=== PATIENT | female | born 1945 | race Caucasian/White ===

== ENCOUNTER 2016-11-06 06:44 | Inpatient (IN) | payer OTHER ==
[2016-11-06] VITALS (17 sets, daily range): BP systolic 91–193; BP diastolic 45–93; PULSE 84–107; RESP 16–33; O2SAT 88–95
[~2016-11-06] VITALS: Ht 167.6 cm; Wt 83.1 kg
[2016-11-06] MEDS ORDERED: Ondansetron 2 mg/mL 2 mL Inj ONE (07:06)
[2016-11-06 07:15] LABS: BASOPHILS % (AUTO) 0.8 % (0-3); EOSINOPHILS % (AUTO) 1.3 % (0-5); Mean Corpuscular Hemoglobin 28.4 pg (27.0-35.0); Mean Corpuscular Volume 88.2 fL (81-100); NEUTROPHILS % (AUTO) 47.3 % (40-74); Platelet Count 153 bil/L (150-400)
--- NOTE | 2016-11-06 07:15 | ED.REPORT ---
HPI-Syncope Date of Service Nov 06, 2016 ED Provider: The patient is a 71 year old female with history of hypertension, who was brought to the emergency department by EMS after she had a syncopal episode this morning. The patient was coughing in bed this morning and got up to use the restroom. The patient remembers going to the restroom, sitting on the toilet to urinate, and then she woke up on the ground with her family standing around her. Her states it took her a minute or two to "get her wits about her." She denies any injuries from the fall. She remained on the floor until EMS arrived. She also reports dizziness, lightheadedness, and nausea. Last night before bed she experienced some heartburn and took medication. She otherwise felt normal yesterday. She denies chest pain or shortness of breath. She has not had similar symptoms in the past. Nursing Notes Stated Complaint: SYNCOPE Chief Complaint: General Complaint Nursing Notes Reviewed: Yes Allergies: Coded Allergies: No Known Allergies (Unverified , 11/06/16) Scheduled Amlodipine (Amlodipine) 5 Mg Tablet 5 MG PO DAILY Miscellaneous Medications Perindopril Erbumine (Perindopril Erbumine) 4 Mg Tablet 4 MG PO General Time Seen by Provider: 07:15 Chief Complaint Lost consciousness Syncope Description: Single episode Hx Obtained From: Patient, Spouse, EMS Arrived By: Ambulance Onset Occurred: 1 - 4 hours ago Symptom Duration: Since onset Progression Since Onset: Constant Severity: Current: No pain currently Severity: Maximum: No pain Recent Healthcare: No recent doctor visit, No recent hospitalization Similar Sx Previous: No Risk-Syncope Well's Criteria for PE HR > 100 (1.5) Well's PE Score: 0-2 pts (low risk 3.6%) Past Medical History Past Medical History Hypertension GERD Past Surgical History Denies Family History Noncontributory Smoking History Never Smoker Social History Alcohol Use: Denies alcohol use Other Social History: Good social support, , From out of town Ambulatory Status Independent Review of Systems Respiratory: Denies: Shortness of breath Cardiovascular: Denies: Chest pain Musculoskeletal: Denies: Back pain, Extremity pain, Joint pain, Neck pain Neurologic: Reports: Change LOC, Dizziness, Lightheaded, Syncope, Denies: Headache Complete sys rev & neg: except as marked. Physical Exam Initial Vital Signs Vital Signs (First) Date Time Temp Pulse Resp B/P Pulse Ox O2 Delivery O2 Flow Rate FiO2 11/06/16 06:52 37.0 86 33 193/93 93 Room Air 11/06/16 08:06 3 Initial VS: Reviewed Head / Eyes: Atraumatic, Normocephalic, PERRL ENT: Mucous membranes moist, Conjunctiva normal, No scleral icterus Neck: Supple, Non-tender, Full range of motion Abdomen / GI: Soft, Non-tender, No guarding, No rebound, No distention Lymphatic: No lymphadenopathy Upper Extremities: Vascular intact, Neuro intact, No swelling, No tenderness Skin: Warm, Dry, No cyanosis Psychiatric: Mood/affect normal, Behavior normal, Normal thought content General/Constitutional: Awake, Alert, No acute distress, Cooperative Respiratory / Chest: Breath sounds = bilat, No respiratory distress, No rhonchi , No wheezing Rales / Rhonchi: Positive: Rales bilateral bases Cardiovascular: Heart rate NL, Regular rhythm, Heart sounds NL, No gallop, No murmurs, No rubs, Cap refill not delayed, Peripheral circulation NL Lower Extremity / Pelvis / MS: Neurologic intact, Vascular intact, No edema Neurologic: Oriented X3, Speech NL, No motor deficits, No sensory deficits, Cerebellar NL Interpretation & Diagnostics Interpretation & Diagnostics: Urine dip: positive for leukocytes Lab Results Interpretation Result Diagram: 11/06/16 0710 11/06/16 0710 Test 11/06/16 07:00 11/06/16 07:10 11/06/16 07:30 11/06/16 10:27 D-Dimer 1.7mg/L (<0.50) Pro-B-Type Natriuretic Peptide 52.71pg/mL (0-301) Procalcitonin 0.03ng/mL (0.00-0.08) White Blood Count 6.1th/mm3 (3.8-10.1) Red Blood Count 5.00mil/mm3 (3.90-5.20) Hemoglobin 14.2g/dL (12.0-15.6) Hematocrit 44.1% (35.0-46.0) Mean Corpuscular Volume 88.2fL (81-100) Mean Corpuscular Hemoglobin 28.4pg (27.0-35.0) Mean Corpuscular Hemoglobin Concent 32.2% (32.0-37.0) Red Cell Distribution Width 13.7% (12.3-15.4) Platelet Count 153bil/L (150-400) Neutrophils (%) (Auto) 47.3% (40-74) Lymphocytes (%) (Auto) 47.9% (14-46) Monocytes (%) (Auto) 2.0% (4-12) Eosinophils (%) (Auto) 1.3% (0-5) Basophils (%) (Auto) 0.8% (0-3) Sodium Level 142mEq/L (134-144) Potassium Level 3.9mEq/L (3.5-5.2) Chloride Level 106mEq/L (97-108) Carbon Dioxide Level 20mmol/L (18-29) Blood Urea Nitrogen 12mg/dL (8-27) Creatinine 0.76mg/dL (0.57-1.00) Estimat Glomerular Filtration Rate 107mL/min (>59) Glucose Level 136mg/dL (60-99) Calcium Level 8.2mg/dL (8.5-10.1) Magnesium Level 2.0mg/dL (1.6-2.6) Total Bilirubin 0.3mg/dL (0.0-1.2) Aspartate Amino Transf (AST/SGOT) 15U/L (0-50) Alanine Aminotransferase (ALT/SGPT) 9U/L (0-32) Alkaline Phosphatase 127U/L (25-165) Troponin T < 0.010ug/L (0.0-0.011) Total Protein 6.5g/dL (6.4-8.4) Albumin 3.7g/dL (3.4-5.0) Urine Color Yellow (YELLOW) Urine Appearance Hazy (CLEAR,HAZY) Urine pH 7.0 (5.0-8.0) Urine Specific [place] 1.015 (1.003-1.035) Urine Protein Negativemg/dL (NEG,TRACE) Urine Glucose (UA) Negativemg/dL (NEGATIVE) Urine Ketones Negativemg/dL (NEGATIVE) Urine Occult Blood Negative (NEGATIVE) Urine Nitrite Negative (NEGATIVE) Urine Bilirubin Negative (NEGATIVE) Urine Urobilinogen Normalmg/dL (NORMAL) Urine Leukocyte Esterase Trace (NEGATIVE) Urine RBC 0-2/hpf (0-2) Urine WBC 0-5/hpf (0-5) Urine Epithelial Cells Occasional/hpf (NONE-MOD) Urine Crystals None seen (NONE SEEN) Urine Bacteria Few/hpf (NONE-FEW) Urine Hyaline Casts None/lpf (NONE) Urine Granular Casts None seen (NONE SEEN) Urine Waxy Casts None seen (NONE SEEN) Urine Red Blood Cell Casts None seen (NONE SEEN) Urine White Blood Cell Casts None seen (NONE SEEN) Urine Mucus None seen (None Seen) Urine Trichomonas None seen (NONE SEEN) Urine Yeast None (NONE SEEN) Urinalysis Comment None Urine Culture Reflexed Indicated Hold Urine Received (Received) Lactic Acid Level 3.0mmol/L (0.4-2.0) ECG Interpretation ECG Interpretation: Normal sinus rhythm with a rate of 84 No acute ischemic changes Time: 06:53 Interpreted by: ED physician X-Ray Chest Interpretation Chest Xray Interpretation: IMPRESSION: Bilateral interstitial and airspace infiltrates consistent with pulmonary edema or diffuse bilateral pneumonia. Dictated by: Julian Mendez M.D. on 11/06/2016 at 8:50 Interpretation / Wet Read by: Interpret - Radiologist CT Chest Interpretation IMPRESSION: 1. No pulmonary embolus. 2. Scattered bilateral lung groundglass opacities, interlobular septal thickening with apical predominance consistent with pulmonary edema. 3. Trace bilateral pleural effusions. 4. Moderate-sized hiatal hernia. 5. Cholelithiasis. Dictated by: Sandra Horta MD, PhD on 11/06/2016 at 9:03 Study type: CT pulm angiogram Interpretation / Wet Read by: Interpret - Radiologist Re-Eval/Medical Decision Source of Hx: Old records, EMS, Family Re-Evaluation/Progress #1: Time of Eval: 07:26 Re-Evaluation/Progress Note: She still complains of nausea. Re-Evaluation/Progress #2: Time of Eval: 08:02 Re-Evaluation/Progress Note: Rechecked the patient. Went through PE risk factors. Re-Evaluation/Progress #3: Time of Eval: 08:26 Re-Evaluation/Progress Note: Rechecked the patient. Discussed elevated d-dimer result and plan for CTA. She understands and agrees. All questions were addressed. Re-Evaluation/Progress #4: Time of Eval: 09:22 Re-Evaluation/Progress Note: Rechecked the patient. Discussed results and plan for admission. She understands and agrees with plan. All questions were addressed. Consultation : Referral / Consult Name: René Lundberg MD Consulted With: Hospitalist Requested Call at: 09:24 Call Returned at: 10:00 Pinion Staker: Will see patient, Agrees with eval, Agrees with plan, Accepts admit Counseled Regarding: Diagnosis, Lab results, Need for admission Discharge & Departure Impression: Primary Impression: Syncope Syncope type: unspecified Qualified Code: R55 - Syncope and collapse Additional Impressions: Congestive heart failure Congestive heart failure type: unspecified congestive heart failure type Congestive heart failure chronicity: unspecified congestive heart failure chronicity Qualified Code: I50.9 - Heart failure, unspecified Hypoxia Disposition: ADMITTED TO HOSPITAL Discharge Condition All VS Reviewed: Yes Condition: Stable Scribe Attestation Portions of this note were transcribed by Anel Li. I, Dr. Casillas personally performed the history, physical exam and medical decision-making; I reviewed and confirmed the accuracy of the information in the transcribed note. Signed by: Fela Osei, 11/06/2016 at 1005. Osvaldo Casillas MD Nov 06, 2016 07:15 Anel Li Nov 06, 2016 07:22
[2016-11-06] MEDS ORDERED: 0.9% Sodium Chloride 1,000 ML IV SCH (07:30)
[2016-11-06] MEDS ORDERED: MetoCLOpramide 5 mg/mL 2 mL Inj IVPUSH ONE (07:30)
[2016-11-06 07:54] LABS: TROPONIN T < 0.010 ug/L (0.0-0.011)
[2016-11-06 08:27] LABS: APPEARANCE,URINE HAZY (CLEAR,HAZY); COLOR,URINE YELLOW (YELLOW); OCCULT BLOOD,URINE NEGATIVE (NEGATIVE); UROBILINOGEN,URINE NORMAL (NORMAL)
--- NOTE | 2016-11-06 08:52 | DRSVH ---
PROCEDURE: X-RAY CHEST ONE VIEW, PORTABLE ([id number]) INDICATIONS: SHORTNESS OF BREATH TECHNIQUE: One view of the chest was acquired. COMPARISON: None. FINDINGS: Surgical changes and devices: None. Lungs and pleura: Bilateral interstitial and airspace infiltrates. No pleural effusions or pneumotho rax. Lungs are clear. Mediastinum: Mediastinal contours appear normal. Heart size is normal. Bones and chest wall: No suspicious bony lesions. Overlying soft tissues appear unremarkable. IMPRESSION: Bilateral interstitial and airspace infiltrates consistent with pulmonary edema or diffus e bilateral pneumonia. Dictated by: Julian Mendez M.D. on 11/06/2016 at 8:50 Approved by: Julian Mendez M.D. on 11/06/2016 at 8:51
--- NOTE | 2016-11-06 09:13 | DRSVH ---
PROCEDURE: CT ANGIO CHEST PULMONARY EMBOLISM ([id number]) INDICATIONS: syncope, abnl chest X-ray TECHNIQUE: After the administration of intravenous contrast, 2 mm thick sections acquired from the pulmonary api jose luis to the posterior costophrenic angles. 3-dimensional maximum intensity projection (MIP) coronal a nd sagittal reformats were then acquired through the thorax. For radiation dose reduction, the follo wing was used: automated exposure control, adjustment of mA and/or kV according to patient size. COMPARISON: [facility], CR, XR CHEST 1VW (PORTABLE), 11/06/2016, 7:06. FINDINGS: Image quality: Excellent. Pulmonary arteries: Pulmonary arteries are normal in size, and demonstrate no intraluminal filling d efects to suggest central pulmonary embolism. Lungs and pleura: Multiple bilateral lung nodules are noted ranging in size from 3-7 mm. Recommend re peat CT scan of the chest in 3 months. Scattered ground glass opacities and septal thickening with ap ical predominance noted in the lungs bilaterally consistent with pulmonary edema. Trace bilateral ple ural effusions. No pneumothorax. Central and peripheral airways are patent. Mediastinum: Heart size is normal, without pericardial effusion. Atherosclerotic calcifications are noted in the aorta. No mediastinal or hilar adenopathy. Thoracic aorta is normal in caliber and enh ancement. Esophagus is normal in caliber, without hiatal hernia. Bones and chest wall: No suspicious bony lesions. Ribs and thoracic spine appear intact throughout. Thyroid gland is within normal limits where visualized. No axillary or supraclavicular adenopathy. Degenerative disc disease and facet arthropathy are noted. Abdomen: Moderate-sized hiatal hernia is noted. Gallstone is partially visualized in the gallbladder . Visualized upper abdominal solid organs appear normal in the early arterial phase of enhancement. IMPRESSION: 1. No pulmonary embolus. 2. Scattered bilateral lung groundglass opacities, interlobular septal thickening with apical predomi nance consistent with pulmonary edema. 3. Trace bilateral pleural effusions. 4. Moderate-sized hiatal hernia. 5. Cholelithiasis. Dictated by: Sandra Horta MD, PhD on 11/06/2016 at 9:03 Approved by: Sandra Horta MD, PhD on 11/06/2016 at 9:11
[2016-11-06] MEDS ORDERED: AMLO5TAB2 PO (10:15)
[2016-11-06] MEDS ORDERED: PERI2TAB2 PO (10:17)
[2016-11-06] MEDS ORDERED: PERI4TAB2 PO (10:39)
[2016-11-06] MEDS ORDERED: Ondansetron 2 mg/mL 2 mL Inj IVPUSH PRN ×2 (11:00→11:30)
[2016-11-06] MEDS ORDERED: Polyethylene Glycol (PEG) 17 Gm Powder PO PRN (11:30)
[2016-11-06] MEDS ORDERED: Alum-Mag Hydrox-Simeth 30 mL Suspension PO PRN (11:30)
--- NOTE | 2016-11-06 16:21 | DRSVH ---
[facility] [address] [place] [address] Echocardiogram Report Name: ANAMIKA JONES ate: 11/06/2016 Height: 66 in Hospital Exam Location: [facility] Weight: 176 lb Gender: Female BSA: 1.9 m2 : 1945 Age: 71 yrs BP: 134/72 mmHg Reason For Study: Syncope Ordering Physician: HOSPITALIST [facility] Performed By: Ellie Iraheta Referring Physician: BEBO SMITH Interpretation Summary 1. Normal left ventricular size, wall thickness and systolic function with an estimated EF of 65 to 70% 2. Normal right ventricular size and systolic function. 3. No evidence for valvular pathology There is no old study for comparison Procedure: A two-dimensional transthoracic echocardiogram with color flow and Doppler was performed. The study quality was technically adequate. There is no prior echocardiogram noted for this patient. The patient was in sinus tachycardia with heart rates between 92-103 bpm during the exam. Left Ventricle: The left ventricular cavity is small. There is normal left ventricular wall thickness. The ejection fraction is estimated to be 65-70%. The E/A ratio is reversed, suggesting impaired early relaxation of the left ventricle or a reduced preload state. Right Ventricle: The right ventricle is normal in size and function. Atria: Both atria are normal in size. There is no Doppler evidence for an interatrial shunt. Mitral Valve: The mitral valve is normal in structure and function. There is trace mitral regurgitation. Aortic Valve: The aortic valve is trileaflet. The aortic valve opens well. No aortic regurgitation is present. Tricuspid Valve: The tricuspid valve is normal in structure and function. There is a trace or physiologic amount of tricuspid regurgitation. Right ventricular systolic pressure is estimated to be 24 mmHg plus the clinically estimated CVP which cannot be estimated on this exam. Pulmonic Valve: The pulmonic valve is not well seen, but is grossly normal. There is a trace or physiologic amount of pulmonic regurgitation. Great Vessels: The aortic root is normal size. The ascending aorta is normal in size. The aortic arch is normal in size. The inferior vena cava was not visualized. Pericardium/ Pleura Trace pericardial fluid. MMode/2D Measurements & Calculations LVIDd: 3.7 cm LA dimension: 3.5 cm RA long axis Ao root diam LVIDs: 2.2 cm FS: 41.3 % LA A2 area: 12.7 cm RA area asc Aorta Diam IVSd: 0.82 cm LA A4 area: 12.3 cm LVPWd: 0.83 cm LA length (vol) : 10.7 cm Ao Arch Diam (Prox RA vol Trans): 3.2 cm LA vol: 28.2 ml : 22.3 ml LA vol index RA : 11.8 mm/ : 14.9 ml/m2 RVDd major : 5.5 cm LV mojica. diameter/BSA LV sys. diameter/BSA RVD1 (basal) RVD2 (mid): 2.8 cm (cm/m^2): 2.0 (cm/m^2): 1.2 Doppler Measurements & Calculations Ao V2 max MV E max elijah MV E/A: 0.63 TR max elijah : 140.8 cm/sec : 58.6 cm/sec Med Peak E' Elijah : 242.6 cm/sec Ao max PG MV A max elijah TR max PG : 7.9 mmHg : 92.3 cm/sec E/E' med: 9.3 : 23.5 mmHg Ao mean PG MV P1/2t: 61.6 msec Lat Peak E' Elijah PA V2 max : 5.0 mmHg : 113.5 cm/sec E/E' lat: 6.5 PA mean PG E/e' average: 7.9 MV A dur: 0.17 sec PA Accel Time : 0.12 sec MV dec time MV P1/2t max elijah Ao V2 mean PA V2 mean : 0.21 sec : 106.8 cm/sec : 76.3 cm/sec MVA(P1/2t): 3.6 cm2 [facility] VTI: 26.7 cm Reading Physician:04:20 PM
--- NOTE | 2016-11-06 17:00 | PCM.HPMED ---
Subjective Date of Service Nov 06, 2016 Primary Provider: Admitting Physician: Primary Care Physician: Carlos Manuel Attending Physician: Chief Complaint: Syncope History of Present Illness: Patient is a 71 year old female with a history of hypertension and hyperlipidemia. She presented to the ED via EMS on 11/06/16 after a syncopal episode. She reports that while still lying in bed this morning, she began coughing then stood up to use the restroom. She made it to the restroom and when she stood after urinating, she blacked out and woke on the floor with family looking at her. Per patient's daughter, she was out for 30-60 seconds and was incontinent of urine on the floor. She denies injury from the fall but has a bruised left hip. Upon arrival of EMS the patient was moved to a chair. Then when trying to stand she experienced abrupt dizziness, nausea and sensation of another syncopal episode. She had nausea but no vomiting and when laying down has no continued nausea. She denies chest pain, headache, vision changes, shortness of breath, diarrhea, dysuria, hematuria, or unusual bleeding. She did recently go camping and had decreased fluid intake during that time to try and control urinary frequency, so reports possible dehydration. She has had no recent illnesses and no sick contacts. She denies recent trauma. Patient reports a similar syncopal episode about 9 months ago where she got up from bed to use the restroom and fell to the floor. Her PCP at that time did a cardiac work up including labs, carotid ultrasound, and ECG, which the patient reports were all negative. She is unsure if echo was obtained, but does not recall an ultrasound of her chest. In the ED the patient was afebrile with a heart rate of 97, respiratory rate 21 , blood pressure 123/71 and O2 saturation of 94% on 3l via nasal cannula. Labs were unremarkable. IV fluids given x 2L. Per nursing staff, patient has hypotension just sitting up in bed. If she is up to the bedside commode she becomes hypotensive, tachycardic, dizzy and nauseated. At rest, she becomes more hypertensive and her nausea resolves completely. Review of Systems: A comprehensive review of systems was conducted with the patient and found to be negative except as above in the history of present illness. Allergies Coded Allergies: No Known Allergies (Unverified , 11/06/16) Home Medications Per patient: Amlodipine 5 mg daily Perindopril 4 mg daily OTC medication for heartburn used as needed PMH Hypertension Hyperlipidemia (diet controlled) Acid reflux Osteoarthritis Uterine fibroids Surgical History Tubal ligation about 40 years ago Colonoscopy x1 Family History Mom - renal cell carcinoma that metastasized to lung and brain ( age 35) Paternal grandfather - [place] Numerous male relative with CAD and hyperlipidemia Social History Hx Alcohol Use: No Hx Substance Use: No Hx Tobacco Use: No Smoking Status: Never Smoker Living Arrangement: with Family Exam Vital Signs Vital Sign - Last Date Time Temp Pulse Resp B/P Pulse Ox O2 Delivery O2 Flow Rate FiO2 11/06/16 10:53 94 21 116/64 94 Nasal Cannula 3 11/06/16 10:10 37.1 Exam Alert and oriented x3, no acute distress; laying in ED bed Head atraumatic, normocephalic PERRLA, EOMI, sclera anicteric Mucus membranes moist, no oral thrush observed No cervical lymphadenopathy, neck supple, nontender No JVD noted Cardiac tones regular rate and rhythm with no murmur appreciated Lungs clear to auscultation bilaterally with adequate respiratory effort in the anterior lorenzo No abdominal tenderness, non-distended, normoactive bowel tones, soft Sagastume absent Radial pulses normal and equivalent bilaterally, dorsalis pedis pulses normal and equivalent bilaterally No cyanosis, clubbing or edema No ulcerations/open wounds; left flank ecchymosis Cranial nerves appear to be fully intact, normal speech, patient can move upper and lower limbs grossly; did not further assess due to reports of hypotension with positional changes Appropriate mood and affect Lab and Diagnostics Result Diagram: 11/06/16 0710 11/06/16 0710 X-Rays, CTs and MRIs PROCEDURE: CT ANGIO CHEST PULMONARY EMBOLISM IMPRESSION: 1. No pulmonary embolus. 2. Scattered bilateral lung groundglass opacities, interlobular septal thickening with apical predominance consistent with pulmonary edema. 3. Trace bilateral pleural effusions. 4. Moderate-sized hiatal hernia. 5. Cholelithiasis. Dictated by: Sandra Horta MD, PhD on 11/06/2016 at 9:03 PROCEDURE: X-RAY CHEST ONE VIEW, PORTABLE IMPRESSION: Bilateral interstitial and airspace infiltrates consistent with pulmonary edema or diffuse bilateral pneumonia. Dictated by: Julian Mendez M.D. on 11/06/2016 at 8:50 Assessment & Plan Patient is a 71 year old female with a history of hypertension and hyperlipidemia. She presented to the ED via EMS on 11/06/16 after a syncopal episode. Patient received IV fluids x 2L. Orthostatics positive. Admitted for further evaluation and management. 1. Syncopal episode, acute, present on admission. - Based on history it would seem a cardiac etiology would be most likely. Also consider fluid depletion or infectious causes. - May be a combination of self-induced dehydration and continuation of antihypertensives during a camping trip over the past weekend. - EKG reassuring at this time. Low threshold to repeat. - Continue telemetry to monitor for any evidence of arrhythmia and AV block. - Echocardiogram ordered and pending. - Will continue to monitor CBC and BMP for signs of reversible causes. - Previous syncopal episode yielded reportedly negative workup with PCP. Will attempt to obtain records from Dr. Suggs in [facility] ([phone]). - Check orthostatics tomorrow AM to re-evaluate syncope. 2. Elevated lactic acid, acute, present on admission. - Could be secondary to hypoperfusion from hypotension. - Patient has received IV fluids and is able to eat and drink. Recommend she consume adequate water. - Continue to trend. 3. Hypertension, chronic, presume stable. - Home meds include amlodipine 5 mg and perindopril 4 mg daily. - Will hold home meds at this time while we further evaluate her syncope. 4. Hyperlipidemia, chronic, presume stable. - Patient reports she has been using diet control for this. - Recommend heart healthy diet during admission. Patient admitted under inpatient status with expected length of stay greater than 2 midnights for severity of present symptoms, complexities of treatment plan and risk for adverse events. PCP Dr. Suggs Pain Evaluation: Adequate Pain Control GI Prophylaxis: Not indicated VTE Prophylaxis: Sub-Q Enoxaparin, SCDs Resuscitation Status: CPR: Attempt Resuscitation Attending Statement The patient was seen and examined together with Dr. Santana on 11/06/2016 and I agree with the history, exam and plan as outlined in the note above. . Magda Santana DO Nov 06, 2016 11:37 René Lundberg MD Nov 08, 2016 07:23
--- NOTE | 2016-11-06 19:25 | NUR ---
Admit Pt admitted from the ED around 1630 with and daughter at the bedside. A&O X3. No c/o pain, dizziness, or nausea. Tele SR 80's. No c/o chest pain. Lungs diminished throughout. On RA. Bruise noted on lower left back. Dry scab areas scattered on back. Bowel tones active. Voiding well. Some dribbling if she doesn't get to the toilet in time. Pt ambulated to the bathroom and back, slightly wobbly. SBA. Appetite good. R AC and R wrist IVs flushing well.
[2016-11-07 02:50] LABS: BASOPHILS % (AUTO) 0.1 % (0-3); EOSINOPHILS % (AUTO) 0.2 % (0-5); MONOCYTES % (AUTO) 6.6 % (4-12); Mean Corpuscular Hemoglobin 28.4 pg (27.0-35.0); Mean Corpuscular Volume 88.1 fL (81-100); NEUTROPHILS % (AUTO) 74.3 % (40-74); Platelet Count 125 bil/L (150-400)
[2016-11-07 03:37] VITALS: PULSE 85
[2016-11-07 03:40] VITALS: BP_SYST 123; BP_SYST 73; BP_DIAS 73; PULSE 87; RESP 16; O2SAT 92
[2016-11-07 03:40] LABS: Magnesium 1.8 mg/dL (1.6-2.6); Phosphorus 3.1 mg/dL (2.5-4.9)
--- NOTE | 2016-11-07 05:13 | NUR ---
Activity/Telemetry Pt able to ambulate in room I without c/o dizziness. Pt states, "I walked all around the room with my daughter." Denies shortness of breath and discomfort. Telemetry: SR HR 86 with PVC per hydroelectric systems technician. VSS. care ongoing.
[2016-11-07 07:31] VITALS: BP 137/83; PULSE 86; RESP 16; O2SAT 94
[2016-11-07 07:42] VITALS: BP 120/80; PULSE 88
[2016-11-07 07:46] VITALS: BP 131/80; PULSE 93
[2016-11-07 08:00] VITALS: PULSE 83
--- NOTE | 2016-11-07 10:40 | PCM.DIMED ---
Ambrose Adam DO 11/07/16 1040: Discharge Instructions Date of Service Nov 07, 2016 Dates of Hospitalization Nov 06, 2016 at 15:59 Discharge Diagnosis Discharge Diagnosis 1. Syncopal episode 2. Elevated lactic acid 3. Hypertension 4. Hyperlipidemia Medication Instructions You are not receiving any medications. Diet No restrictions Activity No restrictions Call your provider Fever or Chills, Shortness of breath, Bleeding, Chest pain, Vomitting, Excessive diarrhea, Weakness (unilateral) Patient Instructions Please take your medications as prescribed from before your hospitalization. Stay well hydrated. Recommend you drink when you are thirsty, but if you are concerned for having to get up to urinate in the middle of the night, stop drinking 2-3 hours before going to bed. If you experience any lightheadedness, dizziness, feel your heart beating fast, have any chest pains, or changes in vision (blurry or double vision), sit down immediately and call for help. If this happens again, please report to an ER or call 911. Follow-up plan Follow up with your primary care physician when you are done with your vacation. We are not changing any medications and you appear stable today. If anything changes, please seek medical attention immediately. Additional Information Pt is from [place] and on vacation. Symptoms resolved. Pt to follow up with personal doctor in [place] following vacation. René Lundberg MD 11/08/16 0724: Discharge Instructions Attending's Statement The patient was seen and examined together with Dr. Adam on 11/07/2016 and I agree with the history, exam and plan as outlined in the note above. . Ambrose Adam DO Nov 07, 2016 10:40 René Lundberg MD Nov 08, 2016 07:24
--- NOTE | 2016-11-07 10:57 | NUR ---
Social Work: Initial Assessment D: Per EMR review, pt is a 71 year old female admitted for CHF< Hypoxia, Syncope. Pt primary insurance is travel insurance through [employer] [facility] on chart. PCP is not listed. NOK is Bess London, dtr, . Advanced directives completed at home- requested copy from pt for pt's EMR. Readmit score is low, 0/8. FACILITIES SPECIALIST met with pt and spouse at bedside. Sw role explained and contact information provided. See initial assessment. Pt and spouse are from [place] and are in town visiting their daughter. Pt is I with ADLs at baseline and uses no DME. Pt has never had HH or care home. Pt continues to drive and has no concerns about d/c. A: pt who is I at baseline. P: Anticipate pt to discharge home via POV once medically stable; FACILITIES SPECIALIST to continue to follow. TERRI Dewey Addendum: 11/07/16 at 1104 by BALTA MA Amended: Links added.
--- NOTE | 2016-11-07 11:12 | PCM.DC.MED ---
Discharge Summary Date of Service Nov 07, 2016 Dates of Hospitalization Date of Hospital Admission Nov 06, 2016 at 15:59 Date of Discharge: Nov 07, 2016 Providers: Admitting Physician: René Lundberg MD Primary Care Physician: Nopcp Attending Physician: René Lundberg MD Diagnosis at Time of Discharge Diagnosis at Time of Discharge 1. Syncopal episode 2. Elevated lactic acid 3. Hypertension 4. Hyperlipidemia Procedures XRay, CTs & MRIs PROCEDURE: CT ANGIO CHEST PULMONARY EMBOLISM IMPRESSION: 1. No pulmonary embolus. 2. Scattered bilateral lung groundglass opacities, interlobular septal thickening with apical predominance consistent with pulmonary edema. 3. Trace bilateral pleural effusions. 4. Moderate-sized hiatal hernia. 5. Cholelithiasis. Dictated by: Sandra Horta MD, PhD on 11/06/2016 at 9:03 PROCEDURE: X-RAY CHEST ONE VIEW, PORTABLE IMPRESSION: Bilateral interstitial and airspace infiltrates consistent with pulmonary edema or diffuse bilateral pneumonia. Dictated by: Julian Mendez M.D. on 11/06/2016 at 8:50 ECG 12 Lead Normal sinus rhythm, heart rate 84, normal axis, No AV Conduction delay no signs of acute infarct or ischemia. Cardiac Echo Impression Interpretation Summary 1. Normal left ventricular size, wall thickness and systolic function with an estimated EF of 65 to 70% 2. Normal right ventricular size and systolic function. 3. No evidence for valvular pathology There is no old study for comparison Brief History From admission note 11/06/2016 "Patient is a 71 year old female with a history of hypertension and hyperlipidemia. She presented to the ED via EMS on 11/06/16 after a syncopal episode. She reports that while still lying in bed this morning, she began coughing then stood up to use the restroom. She made it to the restroom and when she stood after urinating, she blacked out and woke on the floor with family looking at her. Per patient's daughter, she was out for 30-60 seconds and was incontinent of urine on the floor. She denies injury from the fall but has a bruised left hip. Upon arrival of EMS the patient was moved to a chair. Then when trying to stand she experienced abrupt dizziness, nausea and sensation of another syncopal episode. She had nausea but no vomiting and when laying down has no continued nausea. She denies chest pain, headache, vision changes, shortness of breath, diarrhea, dysuria, hematuria, or unusual bleeding. She did recently go camping and had decreased fluid intake during that time to try and control urinary frequency, so reports possible dehydration. She has had no recent illnesses and no sick contacts. She denies recent trauma. Patient reports a similar syncopal episode about 9 months ago where she got up from bed to use the restroom and fell to the floor. Her PCP at that time did a cardiac work up including labs, carotid ultrasound, and ECG, which the patient reports were all negative. She is unsure if echo was obtained, but does not recall an ultrasound of her chest. In the ED the patient was afebrile with a heart rate of 97, respiratory rate 21 , blood pressure 123/71 and O2 saturation of 94% on 3l via nasal cannula. Labs were unremarkable. IV fluids given x 2L. Per nursing staff, patient has hypotension just sitting up in bed. If she is up to the bedside commode she becomes hypotensive, tachycardic, dizzy and nauseated. At rest, she becomes more hypertensive and her nausea resolves completely." Hospital Course Patient is a 71 year old female with a history of hypertension and hyperlipidemia. She presented to the ED via EMS on 11/06/16 after a syncopal episode with fall without hitting her head. Patient received IV fluids x 2L. Orthostatics positive in the emergency department. Admitted for further evaluation and management. 1. Syncopal episode, acute, present on admission. Resolved -Initial concern was for cardiac etiology, echo was negative. Additionally infectious causes were not likely after patient was stabilized and vital signs returned to normal without antibiotics. Most likely etiology is volume status. Patient states that she had been drinking less fluids while camping to decrease her need to urinate but continuing to take her blood pressure medications regularly. - Based on history it would seem a cardiac etiology would be most likely. Also consider fluid depletion or infectious causes. - May be a combination of self-induced dehydration and continuation of antihypertensives during a camping trip over the past weekend. - EKG reassuring. - Routine labs were normal on day of discharge. - Previous syncopal episode yielded reportedly negative workup with PCP. Will attempt to obtain records from Dr. Suggs in [facility] ([phone]). - Orthostatics were negative on day of discharge 2. Elevated lactic acid, acute, present on admission. Resolved - Could be secondary to hypoperfusion from hypotension. - Patient has received IV fluids and is able to eat and drink. Recommend she consume adequate water. - Rendered to normal on day of discharge 3. Hypertension, chronic, presume stable. - Home meds include amlodipine 5 mg and perindopril 4 mg daily.-Held during hospitalization - Home medications were restarted on discharge 4. Hyperlipidemia, chronic, presume stable. - Patient reports she has been using diet control for this. - Recommended heart healthy diet during admission. Exam Vital Signs (Last) Date Time Temp Pulse Resp B/P Pulse Ox O2 Delivery O2 Flow Rate FiO2 11/07/16 08:00 83 11/07/16 07:46 131/80 11/07/16 07:31 36.6 16 94 Room Air 11/06/16 14:54 2 Exam Alert and oriented x3, no acute distress; standing up ambulating appropriately Head atraumatic, normocephalic PERRLA, EOMI, sclera anicteric Mucus membranes moist, no oral thrush observed No cervical lymphadenopathy, neck supple, nontender No JVD noted Cardiac tones regular rate and rhythm with no murmur appreciated Lungs clear to auscultation bilaterally with adequate respiratory effort in the anterior lorenzo No abdominal tenderness, non-distended, normoactive bowel tones, soft Sagastume absent Radial pulses normal and equivalent bilaterally, dorsalis pedis pulses normal and equivalent bilaterally No cyanosis, clubbing or edema No ulcerations/open wounds; left flank ecchymosis Cranial nerves appear to be fully intact, normal speech, patient can move upper and lower limbs grossly; Orthostatics on day of discharge 137/83 lying, 120/80 sitting, 131/80 standing Test 11/06/16 07:00 11/06/16 07:10 11/06/16 07:30 11/07/16 02:40 D-Dimer 1.7mg/L (<0.50) Pro-B-Type Natriuretic Peptide 52.71pg/mL (0-301) Procalcitonin 0.03ng/mL (0.00-0.08) Thyroid Stimulating Hormone (TSH) 6.330uIU/mL (0.450-4.500) Free Thyroxine 1.07ng/dL (0.82-1.77) Hemoglobin A1c 5.9% (4.8-5.6) Troponin T < 0.010ug/L (0.0-0.011) Urine Color Yellow (YELLOW) Urine Appearance Hazy (CLEAR,HAZY) Urine pH 7.0 (5.0-8.0) Urine Specific [place] 1.015 (1.003-1.035) Urine Protein Negativemg/dL (NEG,TRACE) Urine Glucose (UA) Negativemg/dL (NEGATIVE) Urine Ketones Negativemg/dL (NEGATIVE) Urine Occult Blood Negative (NEGATIVE) Urine Nitrite Negative (NEGATIVE) Urine Bilirubin Negative (NEGATIVE) Urine Urobilinogen Normalmg/dL (NORMAL) Urine Leukocyte Esterase Trace (NEGATIVE) Urine RBC 0-2/hpf (0-2) Urine WBC 0-5/hpf (0-5) Urine Epithelial Cells Occasional/hpf (NONE-MOD) Urine Crystals None seen (NONE SEEN) Urine Bacteria Few/hpf (NONE-FEW) Urine Hyaline Casts None/lpf (NONE) Urine Granular Casts None seen (NONE SEEN) Urine Waxy Casts None seen (NONE SEEN) Urine Red Blood Cell Casts None seen (NONE SEEN) Urine White Blood Cell Casts None seen (NONE SEEN) Urine Mucus None seen (None Seen) Urine Trichomonas None seen (NONE SEEN) Urine Yeast None (NONE SEEN) Urinalysis Comment None Urine Culture Reflexed Indicated Hold Urine Received (Received) White Blood Count 13.4th/mm3 (3.8-10.1) Red Blood Count 4.44mil/mm3 (3.90-5.20) Hemoglobin 12.6g/dL (12.0-15.6) Hematocrit 39.1% (35.0-46.0) Mean Corpuscular Volume 88.1fL (81-100) Mean Corpuscular Hemoglobin 28.4pg (27.0-35.0) Mean Corpuscular Hemoglobin Concent 32.2% (32.0-37.0) Red Cell Distribution Width 13.8% (12.3-15.4) Platelet Count 125bil/L (150-400) Neutrophils (%) (Auto) 74.3% (40-74) Lymphocytes (%) (Auto) 18.7% (14-46) Monocytes (%) (Auto) 6.6% (4-12) Eosinophils (%) (Auto) 0.2% (0-5) Basophils (%) (Auto) 0.1% (0-3) Sodium Level 141mEq/L (134-144) Potassium Level 4.4mEq/L (3.5-5.2) Chloride Level 107mEq/L (97-108) Carbon Dioxide Level 24mmol/L (18-29) Blood Urea Nitrogen 13mg/dL (8-27) Creatinine 0.76mg/dL (0.57-1.00) Estimat Glomerular Filtration Rate 107mL/min (>59) Glucose Level 111mg/dL (60-99) Lactic Acid Level 1.0mmol/L (0.4-2.0) Calcium Level 7.7mg/dL (8.5-10.1) Phosphorus Level 3.1mg/dL (2.5-4.9) Magnesium Level 1.8mg/dL (1.6-2.6) Total Bilirubin 0.4mg/dL (0.0-1.2) Aspartate Amino Transf (AST/SGOT) 15U/L (0-50) Alanine Aminotransferase (ALT/SGPT) 7U/L (0-32) Alkaline Phosphatase 89U/L (25-165) Total Protein 5.7g/dL (6.4-8.4) Albumin 3.1g/dL (3.4-5.0) Discharge Medications Discharge Medications Amlodipine (Amlodipine) 5 Mg Tablet 5 MG PO DAILY (Reported) Miscellaneous Medications Perindopril Erbumine (Perindopril Erbumine) 4 Mg Tablet 4 MG PO (Reported) Additional med instructions You are not receiving any medications. Followup Plan Follow-up plan Follow up with your primary care physician when you are done with your vacation. We are not changing any medications and you appear stable today. If anything changes, please seek medical attention immediately. Discharge Diet: No restrictions Discharge Activity: No restrictions Patient Instructions Please take your medications as prescribed from before your hospitalization. Stay well hydrated. Recommend you drink when you are thirsty, but if you are concerned for having to get up to urinate in the middle of the night, stop drinking 2-3 hours before going to bed. If you experience any lightheadedness, dizziness, feel your heart beating fast, have any chest pains, or changes in vision (blurry or double vision), sit down immediately and call for help. If this happens again, please report to an ER or call 911. Time spent Greater than 30 minutes was spent in preparation of discharge with greater than 50% of that time dedicated to patient counseling and coordination of care. . Attending Statement The patient was seen and examined together with Dr. Adam on 11/07/2016 and I agree with the history, exam and plan as outlined in the note above. . Ambrose Adam DO Nov 07, 2016 11:12 René Lundberg MD Nov 08, 2016 07:25
--- NOTE | 2016-11-07 11:20 | NUR ---
Discharge Pt discharged today at 11:15. Pt off floor via ambulation with all belongings in the company of her and the ENRICHMENT DIRECTOR to private vehicle. Pt provided follow up instructions and education materials on syncope and dehydration. pt voices understanding.
== END 2016-11-07 11:12 | disposition home or self-care (01) | DRG 312 ==
LOC: EDBD 06:44 → SED 06:44 → PCC 15:59
PROVIDERS: ADMIT Internal Medicine; ATTEND Internal Medicine
DX: R55 Syncope and collapse (principal); Z91.81 History of falling; Y93.9 Activity, unspecified; Y92.012 Bathroom of single-family (private) house as the place of occurrence of the external cause; Y99.9 Unspecified external cause status; W18.30XA Fall on same level, unspecified, initial encounter; I10 Essential (primary) hypertension; E78.5 Hyperlipidemia, unspecified; E86.0 Dehydration